=== PATIENT | male | born 1995 | race Caucasian/White ===

== ENCOUNTER 2018-09-09 18:03 | Emergency (ER) | payer OTHER ==
--- NOTE | 2018-09-09 19:42 | ED Physician Documentation ---
History of Present Illness - Stated complaint Stated Complaint: EXPOSURE TO BLACK MOLD - Chief complaint Chief Complaint: General - History obtained from History obtained from: Patient - History of Present Illness Timing: Chronic (They live in a house that was found to have black mold. He gets a little bit of wheezing and shortness of breath with exercise but is fine at rest. He is improved when he is not at home.) Review of Systems Constitutional: denies: Fever, Chills Throat: denies: Sore throat Cardiac: denies: Chest pain / pressure, Palpitations Respiratory: denies: Cough, Hemoptysis PD PAST MEDICAL HISTORY - Past Medical History Past Medical History: No - Past Surgical History Past Surgical History: No - Allergies Allergies/Adverse Reactions: Allergies Allergy/AdvReac Type Severity Reaction Status Date / Time No Known Drug Allergies Allergy Verified 09/09/18 18:14 - Social History Does the pt smoke?: No Smoking Status: Never smoker Does the pt drink ETOH?: Yes Does the pt have substance abuse?: No - Immunizations Immunizations are current?: No - POLST Patient has POLST: No PD ED PE NORMAL - Vitals Vital signs reviewed: Yes - General General: Alert and oriented X 3, No acute distress - Cardiac Cardiac: RRR, No murmur - Respiratory Respiratory: No respiratory distress, Clear bilaterally - Abdomen Abdomen: Non tender - Neuro Neuro: Alert and oriented X 3, Normal speech Results - Vitals Vitals: Vital Signs - 24 hr 09/09/18 18:12 Temperature 36.7 C Heart Rate 80 Respiratory 16 Rate Blood Pressure 138/73 H O2 Saturation 99 Departure - Departure Disposition: 01 Home, Self Care Clinical Impression: Mold suspected exposure Condition: Good Record reviewed to determine appropriate education?: Yes Instructions: Allergens Mold
[2018-09-09 19:46] VITALS: BP 130/76
== END 2018-09-09 19:46 | disposition home or self-care (01) ==
LOC: ED 18:03
DX: Z77.120 Contact with and (suspected) exposure to mold (toxic) (principal)
CPT/HCPCS: 99281